=== PATIENT | female | born 1980 | race Caucasian/White ===

== ENCOUNTER → 2021-07-10 13:26 | Outpatient (CLI) | payer OTHER, SELFPAY ==
--- NOTE | ~2021-07-10 | MM_ITS ---
EXAMINATION: MM screening [facility] BI w [facility] HISTORY: Screening mammogram TECHNIQUE: Craniocaudal and mediolateral oblique 3-D tomosynthesis images were obtained and synthetic 2-D images were generated. CAD analysis was submitted and interpreted. COMPARISON: 03/16/2018, 02/28/2018 BREAST PARENCHYMAL COMPOSITION: There are scattered areas of fibroglandular density. FINDINGS: RIGHT BREAST: There is low-density mass in the anterior/middle third of the inner breast best appreci ated 4.5 cm from the nipple on the craniocaudal view. LEFT BREAST: There is a mass in the anterior third of the lower breast (MLO tomosynthesis image 14/69 ) and a mass in the middle third of the slightly outer breast (MLO tomosynthesis image 11/69). IMPRESSION: 1. Bilateral breast masses. 2. Additional mammographic views and possible breast ultrasound are recommended. BI-RADS Category 0: Incomplete: Needs additional imaging evaluation. Reviewed, dictated and finalized at location A. IMPRESSION: 1. Bilateral breast masses. 2. Additional mammographic views and possible breast ultrasound are recommended . BI-RADS Category 0: Incomplete: Needs additional imaging evaluation.
== END ==
PROVIDERS: Visit Provider Nurse Practitioner Obstetrics & Gynecology
DX: Z12.31 Encounter for screening mammogram for malignant neoplasm of breast (principal); R92.8 Other abnormal and inconclusive findings on diagnostic imaging of breast
CPT/HCPCS: 77063; 77067

== ENCOUNTER → 2021-08-11 07:58 | Outpatient (CLI) | payer OTHER, SELFPAY ==
--- NOTE | ~2021-08-11 | MM_ITS ---
EXAMINATION: MM diagnostic [facility] BI w [facility] HISTORY: Follow-up bilateral breast asymmetries TECHNIQUE: Additional 3-D tomosynthesis images of the breasts were performed and synthetic 2-D images were generated. CAD analysis was submitted and interpreted. High resolution Limited right incomplete and complete left breast ultrasound was performed. COMPARISON: The Comparison to multiple prior studies sequentially, with oldest reviewed study dated 02/28/2018. BREAST PARENCHYMAL COMPOSITION: Breast composed of scattered areas of fibroglandular density. FINDINGS: MAMMOGRAPHIC FINDINGS: There is a mass measuring approximately 6 mm in the upper inner quadrant of the right breast anterior ly. There is a mass in the lower outer quadrant of the left breast anteriorly. There are no suspiciou s calcifications in either breast. ULTRASOUND: Limited right breast ultrasound: At 1:00, 5 cm from the nipple, there is a 7 mm simple cyst correspon ding to the mass seen on mammography. Complete left breast ultrasound: At 3:00, 3 cm from the nipple, there is a cluster of microcysts emiliano uring 6 mm in aggregate. At 3:00, 8 cm from the nipple, there are 2 adjacent cysts, largest measuring 4 mm maximum dimension. At 4:00, 4 cm from the nipple, there is a 4 mm cyst. At 8:00, 6 cm from the nipple there is a 2 mm cyst. IMPRESSION: 1. Multiple bilateral breast cysts corresponding to the mammographic findings. No evidence for malign luly in either breast. 2. Routine yearly screening mammogram and regular clinical breast examination are recommended. BI-RADS Category 2: Benign finding(s). Reviewed, dictated and finalized at location A. IMPRESSION: 1. Multiple bilateral breast cysts corresponding to the mammographic findings. No evidence for malignancy in either breast. 2. Routine yearly screening mammogram and regular clinical breast examination a re recommended. BI-RADS Category 2: Benign finding(s).
--- NOTE | ~2021-08-11 | US_ITS ---
Please refer to diagnostic mammogram report dated 08/11/2021 for details. Reviewed, dictated and finalized at location A.
== END ==
PROVIDERS: Visit Provider Nurse Practitioner Obstetrics & Gynecology
DX: R92.8 Other abnormal and inconclusive findings on diagnostic imaging of breast (principal)
CPT/HCPCS: 76641; 76642; 77062; 77066; G0279

== ENCOUNTER 2023-03-03 11:11 | Day surgery (SDC) | payer OTHER, SELFPAY ==
[2023-02-19 09:57] VITALS: BMI 29.2
--- NOTE | 2023-03-03 10:12 | WPDANESEPPF ---
Anes - Initial Pre Proc Eval Procedure: Operation Date: 03/03/23 13:00 Proposed Procedures p Screening Colonoscopy - Andre Gillis MD Date/Time: 03/03/23 10:12 Surgeon: Andre Gillis MD Pre Op Diagnosis: Neoplasm Screening Patient Data Age: 43 Gender: F Height: 1.68 m Weight: 82 kg Allergies Allergy/AdvReac Type Severity Reaction Status Date / Time No Known Allergies Allergy Mild Verified 03/03/23 11:54 Home Medications Medication Instructions Recorded Confirmed Type clindamycin HCl 300 mg capsule 300 mg PO PRN flare up 02/19/23 03/03/23 History cholecalciferol (vitamin D3) PO DAILY 03/03/23 History Patient hx anesthesia problems: none Family hx anesthesia problems: none Results Review: All pre-operative results and documents have been reviewed as part of the pre-operative evaluation. [facility] Past Medical History Medical History (Updated 03/03/23 @ 12:30 by Andre Gillis MD) Colon cancer screening Social History Social History Smoking status: Never smoker Alcohol intake: current Alcohol use details: socially Substance use: never Substance use type: does not use Living arrangements: with family Spiritual care concerns: No Anes - Eval Final PreProcedure Day of Procedure 03/03/23 10:12 Patient weight: overweight Heart: regular rate and rhythm Lungs: clear to auscultation Airway: Mallampati scale class II Neurological: alert and oriented Last oral intake: >/= 8 hours ASA classification: I Emergent: no Anesthetic plan: proceed Anesthesia type and monitoring: general GIVS and standard monitoring Results Review: All pre-operative results and documents have been reviewed as part of the pre-operative evaluation. Informed Consent: The patient's anesthetic plan and its attendant risks and benefits were discussed with the patient/family/POA. Questions were solicited and answers provided to the satisfaction of the patient/family/POA.
[2023-03-03 11:43] VITALS: BP 111/81; PULSE 79; RESP 18; TEMP 37; O2SAT 97; BMI 29.9
[2023-03-03] MEDS: LACTATED RINGERS 1,000 ML 150 ML IV CONT (12:05)
--- NOTE | 2023-03-03 12:29 | PM.HPGS ---
History of Present Illness History of Present Illness Consent: Risks, benefits, and alternatives have been discussed and questions answered. Patient agrees to proceed with procedure. Chief complaint: Neoplasm Screening Narrative: Maria E Ontiveros is a 43 year old female here for first screening colonoscopy Review of Systems Constitutional: Constitutional: Denies headache(s) and Denies weakness Eyes: Eyes: Denies blurry vision ENT: Reports Normal hearing present, Denies headache(s) and Denies neck pain Cardiovascular: Cardiovascular: Denies chest pain and Denies dyspnea Respiratory: Respiratory: Denies dyspnea Gastrointestinal: Gastrointestinal: Reports no additional gastrointestinal complaints Genitourinary: Genitourinary: Denies dysuria Musculoskeletal: Musculoskeletal: Denies neck pain Integumentary/Breasts: Skin/Breast: Denies dry skin Neurologic: Reports Normal hearing present, Denies headache(s) and Denies weakness Psychiatric: Psychiatric: Denies anxiety Endocrine: Endocrine: Denies change in body appearance Hematologic/Lymphatic: Hematologic/Lymphatic: Denies easy bleeding Allergic/Immunologic: Allergic/Immunologic: Denies urticaria PMFSH Past Medical History Medical History (Updated 03/03/23 @ 12:30 by Andre Gillis MD) Colon cancer screening Social History Social History Smoking status: Never smoker Alcohol intake: current Alcohol use details: socially Substance use: never Substance use type: does not use Living arrangements: with family Spiritual care concerns: No Meds Home Medications and Allergies Home Medications Medication Instructions Recorded Confirmed Type clindamycin HCl 300 mg capsule 300 mg PO PRN flare up 02/19/23 03/03/23 History cholecalciferol (vitamin D3) PO DAILY 03/03/23 History Allergies Allergy/AdvReac Type Severity Reaction Status Date / Time No Known Allergies Allergy Mild Verified 03/03/23 11:54 Vital Signs Vital Signs - 24 hr 03/03/23 11:43 Temperature 98.6 F Pulse Rate 79 Respiratory Rate 18 Blood Pressure 111/81 Pulse Oximetry 97 Oxygen Delivery Room Air Exam Const: General: comfortable and no acute distress HENMT: Face/Nose/Sinus: Normal nares present Eyes: General: appearance normal, both eyes and all related structures Neck: Neck: no JVD Resp: Auscultation: clear to auscultation bilaterally Cardio: Rate: regular rate Rhythm: regular rhythm GI: Inspection: non-distended GI Palp: Yes Soft to palpation Skin: General skin exam: normal color Neuro: General: gait normal Speech: normal speech Extrem: General: normal to inspection Psych: Mental Status: mental status grossly normal Assessment and Plan Assessment and plan (1) Colon cancer screening: Code(s): Z12.11 - Encounter for screening for malignant neoplasm of colon Status: Acute Assessment and Plan: colonoscopy
[2023-03-03 12:45] VITALS: BP 94/60; PULSE 75; RESP 14; O2SAT 97
[2023-03-03 12:55] VITALS: BP 96/63; PULSE 80; RESP 16; O2SAT 100
[2023-03-03 13:05] VITALS: BP 109/69; PULSE 74; RESP 18; O2SAT 100
--- NOTE | 2023-03-03 13:18 | WPDANESPN ---
Anes - Prog Note Post-Op Date/Time: 03/03/23 13:18 Cardiovascular status: normal Respiratory status: normal Airway patency: baseline Mental status: baseline Post-Op hydration status: normal Vital Signs: Last Vital Signs Temp 37.0 C 03/03/23 11:43 Pulse 74 03/03/23 13:05 Resp 18 03/03/23 13:05 BP 109/69 03/03/23 13:05 Pulse Ox 100 03/03/23 13:05 O2 Del Method Room Air 03/03/23 13:05 Pain Score (VAS): 0 I/O: Intake & Output 03/02/23 03/03/23 03/03/23 23:59 07:59 15:59 Intake Total 360 Balance 360 Post-procedural complaints: none Patient Feedback: Patient satisfied with anesthetic care. Other Findings: Patient vital signs back to baseline. Patient denies nausea and vomiting. Patient's pain under control. Patient OK for discharge.
== END 2023-03-03 13:38 | disposition home or self-care (01) ==
PROVIDERS: PCP Nurse Practitioner Family; Visit Provider Internal Medicine Gastroenterology
PROC: 0DJD8ZZ Inspection of Lower Intestinal Tract, Via Natural or Artificial Opening Endoscopic (ICD-10-PCS; CPT 45378; principal; 2023-03-03 13:00)
DX: Z12.11 Encounter for screening for malignant neoplasm of colon (principal)
CPT/HCPCS: 45378